=== PATIENT | male | born 1970 | race African-American/Black ===

== ENCOUNTER 2016-08-07 09:33 | Day surgery (SDC) | payer OTHER ==
[~2016-08-07] VITALS: Ht 177.8 cm; Wt 77.1 kg
[~2016-08-07 09:33] MED LIST: BUPIVACAINE MPF 0.5% 30 ML VIAL. ONE; DEXAMETHASONE SOD PHOS 4 MG/ML VIAL ONE; HYDROmorphone 2 MG/ML VIAL IV PRN; IV RINGERS,LACTATED 1000ML 1,000 ML IV SCH; LIDOCAINE 1% 1 ML SYRINGE. ID PRN; LIDOCAINE 1% 20 ML VIAL. ONE; MORPHINE SULFATE 2 MG/ML DISP.SYRIN. IV PRN; ONDANSETRON PF 4 MG/2 ML VIAL. IV PRN; POVIDONE-IODINE 10% TOPICAL OINTMENT 28GM TUBE. TP ONE; PROCHLORPERAZINE 10 MG/2 ML VIAL. IV PRN; fentaNYL PF VIAL 100 MCG/2 ML VIAL IV PRN
[2016-08-07] MEDS ORDERED: PROPOFOL 20 ML IV ONE (10:21)
[2016-08-07] MEDS ORDERED: DEXAMETHASONE SOD PHOS 20 MG/5 ML VIAL. ONE (10:21)
[2016-08-07] MEDS ORDERED: LIDOCAINE 2% PF Vial for OR 5 ML VIAL. ONE (10:21)
[2016-08-07] MEDS ORDERED: FAMOTIDINE 20 MG/2 ML VIAL ONE (10:21)
[2016-08-07] MEDS ORDERED: ONDANSETRON PF 4 MG/2 ML VIAL. ONE (10:21)
[2016-08-07] MEDS ORDERED: MIDAZOLAM HCL/PF 2 MG/2 ML VIAL. ONE (10:24)
[2016-08-07] MEDS ORDERED: fentaNYL PF VIAL 100 MCG/2 ML VIAL ONE (10:25)
--- NOTE | 2016-08-07 10:42 | PDOC1 ---
History and Physical Date of Admission Date of Admission DATE: 08/07/16 TIME: 10:37 Identification/Chief Complaint Chief Complaint toe pain Problems: Source Source: Chart review, Patient History of Present Illness History of Present Illness pt sent from Podiatry clinic, poorly healing fungal infection at base of 4th and 5th left toe. some pain, some difficulty walking, not improved with topical. no prior hospitalizations he works in [employer] 4 children Past Medical History Cardiovascular: No pertinent hx Pulmonary: No pertinent hx GI: No pertinent hx Heme/Onc: No pertinent hx Hepatobiliary: No pertinent hx Psych: No pertinent hx Rheumatologic: No pertinent hx Renal/: No pertinent hx Endocrine: No pertinent hx Dermatology: No pertinent hx Past Surgical History Past Surgical History: No pertinent history Family History Family History: No Significant Social History Smoke: No ALCOHOL: none Current Medications Current Medications Current Medications Ondansetron HCl (Zofran) 4 mg PRN Q6HRS PRN IV NAUSEA/VOMITING; Start 08/07/16 at 07:00; Stop 08/08/16 at 06:59 Fentanyl Citrate (Fentanyl 2ml Vial) 25 mcg PRN Q5MIN PRN IV MILD PAIN; Start 08/07/16 at 07:00; Stop 08/08/16 at 06:59 Fentanyl Citrate (Fentanyl 2ml Vial) 50 mcg PRN Q5MIN PRN IV MODERATE PAIN; Start 08/07/16 at 07:00; Stop 08/08/16 at 06:59 Morphine Sulfate 1 mg PRN Q10MIN PRN IV SEVERE PAIN; Start 08/07/16 at 07:00; Stop 08/08/16 at 06:59 Ringer's Solution 1,000 ml @ 0 mls/hr Q0M IV ; Start 08/07/16 at 07:00; Stop at 18:59 Lidocaine HCl 2 ml PRN 1X PRN ID PRIOR TO IV START; Start 08/07/16 at 07:00; Stop 08/08/16 at 06:59 Hydromorphone HCl (Dilaudid) 0.5 mg PRN Q10MIN PRN IV SEV PAIN, Second choice; Start 08/07/16 at 07:00; Stop 08/08/16 at 06:59 Prochlorperazine Edisylate (Compazine) 5 mg PACU PRN PRN IV NAUSEA, MRX1; Start 08/07/16 at 07:00; Stop 08/08/16 at 06:59 Cefazolin Sodium 50 ml @ 100 mls/hr 1X PREOP PRN IV Prior to surgery; Start at 08:00; Stop 08/07/16 at 15:00 Bupivacaine HCl (Sensorcaine Mpf 0.5%) 30 ml STK-MED ONCE .ROUTE ; Start at 08:33; Stop 08/07/16 at 08:34; Status DC Povidone Iodine ( Betadine Oint) 28 josr STK-MED ONCE TP ; Start 08/07/16 at 08: 33; Stop 08/07/16 at 08:34; Status DC Dexamethasone Sodium Phosphate (Decadron) 4 mg STK-MED ONCE .ROUTE ; Start 08/07 at 08:33; Stop 08/07/16 at 08:34; Status DC Lidocaine HCl 20 ml STK-MED ONCE .ROUTE ; Start 08/07/16 at 08:33; Stop at 08:34; Status DC Lidocaine HCl (Lidocaine Pf 2% Vial) 5 ml STK-MED ONCE .ROUTE ; Start 08/07/16 at 10:21; Stop 08/07/16 at 10:22; Status DC Propofol 20 ml @ As Directed STK-MED ONCE IV ; Start 08/07/16 at 10:21; Stop at 10:22; Status DC Dexamethasone Sodium Phosphate (Decadron) 20 mg STK-MED ONCE .ROUTE ; Start at 10:21; Stop 08/07/16 at 10:22; Status DC Famotidine (Pepcid) 20 mg STK-MED ONCE .ROUTE ; Start 08/07/16 at 10:21; Stop at 10:22; Status DC Ondansetron HCl (Zofran) 4 mg STK-MED ONCE .ROUTE ; Start 08/07/16 at 10:21; Stop 08/07/16 at 10:22; Status DC Midazolam HCl (Versed) 2 mg STK-MED ONCE .ROUTE ; Start 08/07/16 at 10:24; Stop 08/07/16 at 10:25; Status DC Fentanyl Citrate (Fentanyl 2ml Vial) 100 mcg STK-MED ONCE .ROUTE ; Start at 10:25; Stop 08/07/16 at 10:26; Status DC Allergies Allergies: Coded Allergies: No Known Drug Allergies (Unverified , 08/05/16) ROS General: No: Chills, Night Sweats, Fatigue, Malaise, Appetite, Other PSYCHOLOGICAL ROS: No: Anxiety, Behavioral Disorder, Concentration difficultie , Decreased libido, Depression, Disorientation, Hallucinations, Hostility, Irritablity, Memory difficulties, Mood Swings, Obsessive thoughts, Physical abuse, Sexual abuse, Sleep disturbances, Suicidal ideation, Other Eyes: No Blurry vision, No Decreased vision, No Double vision, No Dry eyes, No Excessive tearing, No Eye Pain, No Itchy Eyes, No Loss of vision, No Photophobia , No Scotomata, No Uses contacts, No Uses glasses, No Other HEENT: No: Heacaches, Visual Changes, Hearing change, Nasal congestion, Nasal discharge, Oral lesions, Sinus pain, Sore Throat, Epistaxis, Sneezing, Snoring, Tinnitus, Vertigo, Vocal changes, Other Respiratory: No: Cough, Hemoptysis, Orthopnea, Pleuritic Pain, Shortness of breath, SOB with excertion, Sputum Changes, Stridor, Tachypnea, Wheezing, Other Cardiovascular: No Chest Pain, No Palpitations, No Orthopnea, No Paroxysmal Noc. Dyspnea, No Edema, No Lt Headedness, No Other Gastrointestinal: No Nausea, No Vomiting, No Abdominal Pain, No Diarrhea, No Constipation, No Melena, No Hematochezia, No Other Genitourinary: No Dysuria, No Frequency, No Incontinence, No Hematuria, No Retention, No Discharge, No Urgency, No Pain, No Flank Pain, No Other, No , No , No , No , No , No , No Musculoskeletal: Yes Joint Pain (toe), Yes Joint Stiffness, No Gait Disturbance, No Joint Swelling, No Muscle Pain, No Muscular Weakness , No Pain In:, No Swelling In:, No Other Neurological: No Behavorial Changes, No Bowel/Bladder ControlChng, No Confusion , No Dizziness, No Gait Disturbance, No Headaches, No Impaired Coord/balance, No Memory Loss, No Numbness/Tingling, No Seizures, No Speech Problems, No Tremors, No Visual Changes, No Weakness, No Other Skin: No Dry Skin, No Eczema, No Hair Changes, No Lumps, No Mole Changes, No Mottling, No Nail Changes, No Pruritus, No Rash, No Skin Lesion Changes, No Other, No Acne Physical Exam General: Alert, Oriented X3, Cooperative HEENT: Atraumatic, PERRLA Lungs: Clear to auscultation Heart: S1S2 Abdomen: Normal bowel sounds, Soft Rectal Exam: not examined Extremities: No clubbing, No cyanosis Skin: Other (fungal infection with some white exudate between 4-5 left metacarpal) Neuro: Normal tone, Sensation intact Psych/Mental Status: Mental status NL, Mood NL VTE Prophylaxis Ordered VTE Prophylaxis Devices: No VTE Pharmacological Prophylaxi: No Assessment/Plan Assessment/Plan left 4-5 th toe fungal infection in inguinal area. obs admit for debridement, Podiatry to follow VANESSA Arreola MD August 07, 2016 10:42
[2016-08-07 10:48] LABS: BASO % 1 % (0-3); EOS % 4 % (0-3); HEMATOCRIT 46.3 % (39.0-53.0); HEMOGLOBIN 15.5 g/dL (13.0-17.5); LYMPH # 2.1 x10^3/uL (1.0-4.8); LYMPH % 54 % (24-48); MEAN CORPUSCULAR HEMOGLOBIN 28 pg (25-35); MEAN CORPUSCULAR HGB CONC 34 g/dL (31-37); MEAN CORPUSCULAR VOLUME 84 fL (79-100); MONO % 13 % (0-9); NEUT % 29 % (31-73); PLATELET COUNT 233 x10^3/uL (140-400); RED BLOOD COUNT 5.48 x10^6/uL (4.30-5.70); RED CELL DISTRIBUTION WIDTH 13.5 % (11.5-14.5); WHITE BLOOD COUNT 3.9 x10^3/uL (4.0-11.0)
[2016-08-07 11:04] LABS: CALCIUM 8.5 mg/dL (8.5-10.1); GFR 98.2; POTASSIUM 4.2 mmol/L (3.5-5.1)
[2016-08-07] MEDS ORDERED: SEVOFLURANE 61 TO 120 MINUTES. IH ONE (12:23)
--- NOTE | 2016-08-07 12:47 | PDOC4 ---
Operative Note Operative Note Surgeon: Johanny Pre op DX: hammer toe 4th and 5th left foot post op DX: same Procedure arthroplasty 4th and 5th digit left foot Anesthesia: LMA with local Hemostasis: Right ankle tourniquet at 250mmHg EBL 0mL Materials: 0.045 k-wire intraoperative findings: note prominent 5th digit proximal phalanx at level of soft corn interdigitally Dictation number #[id number] ASHLY DAMON DPM August 07, 2016 12:47
[2016-08-07] MEDS ORDERED: TERB250T8 PO (12:59)
[2016-08-07] MEDS ORDERED: IBUP-1060 PO (13:00)
[2016-08-07] MEDS ORDERED: CEPH-264 PO (13:02)
[2016-08-07] MEDS ORDERED: HYDR-971 PO (13:03)
[2016-08-07] MEDS ORDERED: HYDROcodone/APAP 5/325MG 1 TAB TABLET PO PRN (13:30)
[2016-08-07] MEDS ORDERED: HYDROcodone/APAP 5/325MG 1 TAB TABLET ONE (13:33)
[2016-08-07 13:35] VITALS: BP 115/77
--- NOTE | 2016-08-07 16:44 | RAD ---
Portable left foot, 3 views, 08/07/2016: History: Postop evaluation No preoperative radiographs are available for comparison purposes. There are radiopacities overlying the fourth and fifth toes apparently related to a bandage. These partially obscure the underlying bony structures. There appears to been surgical resection of the distal ends of the proximal phalanges of the fifth and fourth toes. There is a longitudinally oriented surgical pin traversing the PIP articulation of the fourth toe. There is mild lateral displacement of the fourth middle phalanx relative to the distal end of the proximal phalanx.
--- NOTE | 2016-08-07 18:49 | OP ---
DATE OF SURGERY: 08/07/2016 PREOPERATIVE DIAGNOSIS: Hammer digit syndrome, fourth and fifth, left foot with ____ POSTOPERATIVE DIAGNOSIS: Hammer digit syndrome, fourth and fifth, left foot with ____ PROCEDURE: Arthroplasty of fourth and fifth toes, left foot. SURGEON: Gregory Orlando DPM ANESTHESIA: LMA with local. HEMOSTASIS: Left ankle tourniquet at 250 mmHg x 38 minutes. INDICATIONS: The patient is a 45-year-old male with chronic painful and recurrent hammertoes with lesion to the fourth and fifth toes of the left foot. The patient has failed conservative treatment of wider shoe gear accommodative padding. Serial debridements. Nonsteroidal anti-inflammatories and x-ray shows that the lesion correlates to the proximal phalanx head of the fifth toe and thus recommended arthroplasty of fourth and fifth to diminish the underlying etiology of the recurrent lesion. Discussed with the patient possible risks, benefits, and complications to include infection, recurrence of lesion, need for further surgery, floppy toe, flail toe, lack of toe purchase, shortening toe, pain in toe, swelling, numbness, tingling, burning, chronic pain, need for further surgery, ischemia, and loss of toe, loss of foot, loss of limb or life. All questions were answered. The patient signed consent freely and put in chart. DESCRIPTION OF PROCEDURE: The patient was transported to the operating room via a cart and placed on the operating room table in supine position. Final verification of the surgery, the patient, and limb was performed. The patient was given 1 gram of Ancef preoperatively. IV sedation was administered per Anesthesia and they initiated LMA. At this time, I gave a local digital block to the fourth and fifth toes, consisting of a 1:1 mixture of 1% lidocaine plain and 0.5% Marcaine plain, 12 mL total. The left foot was then prepped and draped in the usual aseptic manner and a well-padded tourniquet was placed over the left ankle. A timeout was taken to verify the patient, surgery, and limb to be performed on. The Esmarch bandage was used to exsanguinate the left foot and left ankle tourniquet was inflated to 250 mmHg. Attention was directed to the fourth and fifth toes. A 2-cm linear incision was made over the proximal interphalangeal joint of the fourth toe. This was deepened down to the level of the joint capsule. The extensor tendon was transected transversely and next, resected the medial and lateral collateral ligaments. Next, small vessels were cauterized. A sagittal saw was used to resect the head of the proximal phalanx and was smoothed with a walker rasp. This was then copiously irrigated with sterile saline. A 0.045 K-wire was then retrograded through the middle and distal phalanx and then forwarded through the proximal phalanx with care being taken not to go into the metatarsophalangeal joint of the fourth MPJ. The wound was then copiously irrigated with sterile saline and the tendon was re-approximated with 2-0 Vicryl and the skin was re-approximated with 4-0 nylon. The 4.5 K-wire was then cut and capped. We then placed a dragon ball. Next, attention was directed to the fifth digit where two converging semielliptical incisions were made just at the proximal interphalangeal joint, going medial distal to lateral proximal. The skin was ellipsed out and the extensor tendon was transected at the joint level of the proximal interphalangeal joint. Next, a bone cutter was used to resect the head of the proximal phalanx and used a walker rasp to remove the medial base of the middle phalanx and to smooth out the medial and central area of the proximal phalanx which was resected. Copiously irrigated with sterile saline and then this tendon was re-approximated with 2-0 Vicryl and the skin was re-approximated with 4-0 nylon. Next, I debrided the ____ lesion in between the toes. Note that there was no discontinuity of skin and it was debrided and next applied Adaptic-soaked Betadine and gauze soaked with Betadine to the fourth interspace. The wound was dressed with 4 x 4s, Kerlix bandage, and Constantin bandage. The tourniquet was deflated after 38 minutes and good perfusion was noted to all digits of the left foot. The patient tolerated both the anesthesia and the procedure well. He was transported to the PACU in stable condition with vital signs stable. The patient will be given [place] 325/5 mg for pain and he will be given terbinafine 250 mg daily for 14 days for any residual tinea pedis, as well as Keflex 500 mg b.i.d. for 7 days. We will have the patient follow up in 5-7 days in the office. GREGORY ORLANDO DPM DR: Geoffrey JOB#: [id number] / [id number]
== END 2016-08-07 13:54 | disposition home or self-care (01) ==
LOC: SURG 09:33
PROVIDERS: ATTEND Podiatrist Foot & Ankle Surgery
DX: M20.42 Other hammer toe(s) (acquired), left foot (principal); Z87.39 Personal history of other diseases of the musculoskeletal system and connective tissue; Z72.89 Other problems related to lifestyle
CPT/HCPCS: 28285; 36415; 73630; 80048; 85027; J0690; J1100; J2250; J2405; J2704; J3010; J3490; S0028

== ENCOUNTER → 2020-05-02 | Outpatient (CLI) | payer BC, OTHER ==
[~2020-05-02] MED LIST changes: -BUPIVACAINE MPF 0.5% 30 ML VIAL. ONE; +CEPH-264 PO; -DEXAMETHASONE SOD PHOS 4 MG/ML VIAL ONE; +HYDR-3164 PO; -HYDROmorphone 2 MG/ML VIAL IV PRN; +IBUP-1060 PO; -IV RINGERS,LACTATED 1000ML 1,000 ML IV SCH; -LIDOCAINE 1% 1 ML SYRINGE. ID PRN; -LIDOCAINE 1% 20 ML VIAL. ONE; -MORPHINE SULFATE 2 MG/ML DISP.SYRIN. IV PRN; -ONDANSETRON PF 4 MG/2 ML VIAL. IV PRN; +OXYC-325 PO; -POVIDONE-IODINE 10% TOPICAL OINTMENT 28GM TUBE. TP ONE; -PROCHLORPERAZINE 10 MG/2 ML VIAL. IV PRN; +TERB250T84 PO; -fentaNYL PF VIAL 100 MCG/2 ML VIAL IV PRN
== END ==
LOC: LAB 10:08
PROVIDERS: ATTEND Surgery
DX: Z01.812 Encounter for preprocedural laboratory examination (principal); K40.90 Unilateral inguinal hernia, without obstruction or gangrene, not specified as recurrent; Z20.822 Contact with and (suspected) exposure to COVID-19
CPT/HCPCS: U0003

== ENCOUNTER 2020-05-06 09:37 | Day surgery (SDC) | payer BC ==
[~2020-05-06] VITALS: Ht 177.8 cm; Wt 75.0 kg
[~2020-05-06 09:37] MED LIST changes: +BACITRACIN 50,000 UNIT in IV NORMAL SALINE 500ML BAG 500 ML IRR ONE; +BUPIVACAINE-EPI 0.5% 30 ML VIAL KIT. ONE; +HYDROmorphone 2 MG/ML VIAL IVP PRN; +IV RINGERS,LACTATED 1000ML 1,000 ML IV SCH; +MORPHINE SULFATE 2 MG/ML VIAL. IVP PRN; -OXYC-325 PO; +PROCHLORPERAZINE 10 MG/2 ML VIAL. IVP PRN; +fentaNYL PF VIAL 100 MCG/2 ML VIAL IVP PRN
[2020-05-06] MEDS ORDERED: ROCURONIUM 50 MG/5 ML VIAL. ONE (10:07)
[2020-05-06] MEDS ORDERED: DEXAMETHASONE SOD PHOS 4 MG/ML VIAL ONE (10:08)
[2020-05-06] MEDS ORDERED: LIDOCAINE 2% PF 5 ML VIAL. ONE (10:08)
[2020-05-06] MEDS ORDERED: PROPOFOL 10 MG/ML (20ML) VIAL. IV ONE (10:08)
[2020-05-06] MEDS ORDERED: ONDANSETRON PF 4 MG/2 ML VIAL. ONE (10:08)
[2020-05-06] MEDS ORDERED: fentaNYL PF VIAL 250 MCG/5 ML VIAL ONE (10:08)
[2020-05-06] MEDS ORDERED: SEVOFLURANE 61 TO 120 MINUTES. IH ONE (12:11)
[2020-05-06] MEDS ORDERED: NEOSTIGMINE METHYLSULFATE 5 MG/5 ML SYRINGE. ONE (12:12)
[2020-05-06] MEDS ORDERED: GLYCOPYRROLATE 1 MG/5 ML VIAL. ONE (12:12)
--- NOTE | 2020-05-06 12:23 | PDOC4 ---
Operative Note Operative Note Operative Note: Preoperative Diagnosis: Right inguinal hernia Postoperative Diagnosis: Same Procedure: Right inguinal hernia repair with mesh Surgeon: Twin Hand Laster: David FRAGOSO Anesthesia: General EBL: 10 mL Specimen: None Drains: None Complications: None Indication: The patient is a 49-year-old male who was referred with a right inguinal hernia. He was offered surgical repair. The risks of surgery were discussed which include bleeding, infection, recurrence, pain, anesthetic risk, potential need for additional surgery procedure. He understands and would like to proceed. Description: The patient was taken to the operating room and placed supine in the operating table. General anesthesia was performed. The right groin was shaved prepped with ChloraPrep and draped in a standard surgical manner. An incision was made in the skin lines with a scalpel. Cautery dissection was carried down to the fascia. The external oblique was opened down to the external ring. The contents of the inguinal canal were digitally mobilized and encircled with a Romulo drain. The patient had a small sized indirect hernia defect. There was no indirect hernia sac noted. The edges of the hernia defect were delineated. The attenuated transversus was opened exposing the preperitoneal fat. A large Phasix mesh plug was placed in the defect and secured around its periphery with 2-0 Vicryl. The entire inguinal floor was then reinforced with a Prolene keyhole mesh patch. The mesh was sutured into position with 2-0 Vicryl. A slit was made to accommodate the cord structures. The external oblique was closed over the mesh with 2-0 Vicryl. The subcutaneous tissue was closed with 3-0 Vicryl. The skin was approximated with 4-0 Monocryl. The incision was infiltrated with half percent Marcaine with epinephrine. Steri-Strips and a sterile dressing were applied. The patient tolerated the procedure well and was sent to the recovery room in stable condition. At the end of the case all counts were correct. PAULINO GLEASON MD May 06, 2020 12:23
--- NOTE | 2020-05-06 12:26 | DISCH ---
DISCHARGE INSTRUCTIONS Condition on Discharge Condition on Discharge: Stable Activity After Discharge Activity Instructions for Disc: Other, see below (No lifting over 20 lbs X 4 weeks) Diet after Discharge Diet after Discharge: Regular Wound Incision Care Wound/Incision Care: Other, see below (keep dressing clean and dry X 72 hours, may then remove and shower) Follow-Up Follow up with: Dr Gleason in 2 weeks, call for appointment, PAULINO GLEASON MD May 06, 2020 12:26
[2020-05-06] MEDS ORDERED: oxyCODONE/APAP 5/325 1 TAB TABLET PO ONE ×2 (13:00)
[2020-05-06] MEDS ORDERED: OXYC-325 PO (13:05)
[2020-05-06 13:29] VITALS: BP 121/70
== END 2020-05-06 14:05 | disposition home or self-care (01) ==
LOC: SURG 09:37
PROVIDERS: ATTEND Surgery
DX: K40.90 Unilateral inguinal hernia, without obstruction or gangrene, not specified as recurrent (principal); Z79.899 Other long term (current) drug therapy; Z98.890 Other specified postprocedural states; Z72.89 Other problems related to lifestyle
CPT/HCPCS: 49505; C1781; J0690; J1100; J2405; J2704; J2710; J3010; J3490; J7040; J7120